=== PATIENT | male | born 1990 ===

== ENCOUNTER 2022-01-30 17:34 | Emergency (ER) | payer SELFPAY ==
[2022-01-31 01:56] LABS: Alanine Aminotransferase 8 units/L (7-56); Albumin 3.9 g/dL (3.9-5); BUN/Creatinine Ratio 11; Blood Urea Nitrogen 9 mg/dL (9-20); Calcium 9.3 mg/dL (8.4-10.2); Hemolysis Index 2
[2022-01-31 02:50] LABS: Basophils % (Auto) 0.3 % (0.0-1.8); Eosinophils # (Auto) 0.2 K/mm3 (0.0-0.4); Eosinophils % (Auto) 1.6 % (0.0-4.3); Hematocrit 44.4 % (35.5-45.6); Hemoglobin 14.7 gm/dl (11.8-15.2); Lymphocytes # (Auto) 2.1 K/mm3 (1.2-5.4); Lymphocytes % (Auto) 20.5 % (13.4-35.0); Mean Corpuscular HGB Conc 33 % (32-34); Mean Corpuscular Volume 89 fl (84-94); Monocytes % (Auto) 10.3 % (0.0-7.3); Platelet Count 353 K/mm3 (140-440); Red Blood Count 5.01 M/mm3 (3.65-5.03); Red Cell Distribution Width 12.6 % (13.2-15.2)
[2022-01-31 03:04] LABS: Partial Thromboplastin Time 33.8 Sec. (24.2-36.6)
[2022-01-31 03:10] LABS: INR 1.09 (0.87-1.13)
[2022-01-31] MEDS ORDERED: oxyCODONE /ACETAMINOPHEN 5-325MG TAB PO ONE (03:11)
--- NOTE | 2022-01-31 03:32 | Emergency Department Report ---
<ARMANDOSELENE - Last Filed: 01/31/22 03:29> ED ENT HPI - General Chief complaint: Headache Stated complaint: SEVERE HEADACHE/MOUTH PAIN Time Seen by Provider: 01/31/22 00:48 Source: patient Mode of arrival: Ambulatory Limitations: No Limitations - History of Present Illness Initial comments: 31-year-old male gentleman department complaining of a 4-day history of right- sided pain to his eroded dental cavities radiating up and down the side of his face off along with swollen up significantly after he tried to swish and spit a bottle of gin however the pain pain is continuously present when promising for evaluation and treatment options MD complaint: tooth pain -: Gradual Severity: mild, moderate Consistency: intermittent Worsens with: eating Context- Dental: history of dental caries, poor dental care Associated Symptoms: gum swelling, toothache. denies: pain with swallowing, hearing loss, rhinorrhea - Related Data Previous Rx's Medication Instructions Recorded Last Taken Type Amoxicillin [Amoxicillin TAB] 875 mg PO BID #20 tablet 01/31/22 Unknown Rx Ketorolac [Toradol] 10 mg PO Q6H PRN #15 tablet 01/31/22 Unknown Rx Lidocaine Viscous 2% 5 ml MM Q3H PRN #120 udc 01/31/22 Unknown Rx Allergies Allergy/AdvReac Type Severity Reaction Status Date / Time No Known Allergies Allergy Verified 01/30/22 19:30 ED Dental HPI - General Chief complaint: Headache Stated complaint: SEVERE HEADACHE/MOUTH PAIN Time Seen by Provider: 01/31/22 00:48 Source: patient Mode of arrival: Ambulatory Limitations: No Limitations - Related Data Previous Rx's Medication Instructions Recorded Last Taken Type Amoxicillin [Amoxicillin TAB] 875 mg PO BID #20 tablet 01/31/22 Unknown Rx Ketorolac [Toradol] 10 mg PO Q6H PRN #15 tablet 01/31/22 Unknown Rx Lidocaine Viscous 2% 5 ml MM Q3H PRN #120 udc 01/31/22 Unknown Rx Allergies Allergy/AdvReac Type Severity Reaction Status Date / Time No Known Allergies Allergy Verified 01/30/22 19:30 ED Review of Systems Comment: All other systems reviewed and negative ED Past Medical Hx - Medications Home Medications: Home Medications Medication Instructions Recorded Confirmed Last Taken Type Amoxicillin [Amoxicillin TAB] 875 mg PO BID #20 tablet 01/31/22 Unknown Rx Ketorolac [Toradol] 10 mg PO Q6H PRN #15 tablet 01/31/22 Unknown Rx Lidocaine Viscous 2% 5 ml MM Q3H PRN #120 udc 01/31/22 Unknown Rx ED Physical Exam - General Limitations: No Limitations General appearance: alert, in no apparent distress - Head Head exam: Present: atraumatic, normocephalic - Eye Eye exam: Present: normal appearance - ENT ENT exam: Present: mucous membranes moist, other (Diffuse dental caries with severe erosion to the right upper molar region. There is adjacent gingival pain with palpation along the zygomatic arch base) - Neck Neck exam: Present: normal inspection - Respiratory Respiratory exam: Present: normal lung sounds bilaterally. Absent: respiratory distress - Cardiovascular Cardiovascular Exam: Present: regular rate, normal rhythm. Absent: systolic murmur, diastolic murmur, rubs, gallop - GI/Abdominal GI/Abdominal exam: Present: soft, normal bowel sounds - Rectal Rectal exam: Present: deferred - Extremities Exam Extremities exam: Present: normal inspection - Back Exam Back exam: Present: normal inspection - Neurological Exam Neurological exam: Present: alert, oriented X3 - Psychiatric Psychiatric exam: Present: normal affect, normal mood - Skin Skin exam: Present: warm, dry, intact, normal color. Absent: rash ED Medical Decision Making - Lab Data Result diagrams: 01/31/22 01:19 01/31/22 01:19 ED Disposition Clinical Impression: Headache Disposition: 01 HOME / SELF CARE / HOMELESS Is pt being admited?: No Does the pt Need Aspirin: No Condition: Stable Instructions: Dental Extraction, [id number] Prescriptions: Amoxicillin [Amoxicillin TAB] 875 mg PO BID #20 tablet Lidocaine Viscous 2% 5 ml MM Q3H PRN #120 udc PRN Reason: Pain, Moderate (4-6) Ketorolac [Toradol] 10 mg PO Q6H PRN #15 tablet PRN Reason: Pain Referrals: [facility] [Outside] - 3-5 Days <CARLA WOODS - Last Filed: 02/21/22 13:31> ED Review of Systems ROS: Stated complaint: SEVERE HEADACHE/MOUTH PAIN Other details as noted in HPI ED Course Vital Signs 01/30/22 01/31/22 19:33 03:53 Temperature 98.8 F Pulse Rate 104 H 87 Respiratory 18 14 Rate Blood Pressure 145/80 Blood Pressure 137/76 [Left] O2 Sat by Pulse 100 100 Oximetry ED Medical Decision Making - Lab Data Result diagrams: 01/31/22 01:19 01/31/22 01:19 - Medical Decision Making The patient above was seen independently by the midlevel below , although I was available for consult , I wasnt involved in decision making or disposition of the patient Carla Woods MD Critical care attestation.: If time is entered above; I have spent that time in minutes in the direct care of this critically ill patient, excluding procedure time. ED Disposition Is pt being admited?: No Does the pt Need Aspirin: No
[2022-01-31 03:54] VITALS: BP 137/76
== END 2022-02-01 11:24 | disposition home or self-care (01) ==
LOC: ED 17:34
DX: K02.9 Dental caries, unspecified (principal)
CPT/HCPCS: 36415; 80053; 85025; 85610; 85730; 99283